=== PATIENT | female | born 1990 | race Two or more races ===

== ENCOUNTER 2019-10-28 11:54 | Inpatient (IN) | payer OTHER ==
[2019-10-28] MEDS ORDERED: ELECTROLYTE-148 SOLN 500 ML IV ONE (12:00)
[2019-10-28] MEDS ORDERED: CITRIC ACID/SODIUM CITRATE 30 ML UNIT-DOSE CUP PO ONE (12:39)
[2019-10-28] MEDS: ELECTROLYTE-148 SOLN 1,000 ML IV SCH (12:45)
[2019-10-28 12:55] VITALS: BMI 36.1
--- NOTE | 2019-10-28 13:14 | HP ---
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: Alzheimer's, CVA, Dementia, Migraine, Multiple Sclerosis, Peripheral Neuropathy, Parkinson's, Seizure, Syncope, TIA, Vertigo, Other Cardiovascular: No: AFIB, Aneurysm, Aortic Insufficiency, Aortic Stenosis, CAD, CHF, Deep Vein Thrombosis, HTN, Hyperlipdemia, [place], Mitral Insufficiency, Mitral Stenosis, Murmur, Pulmonary Hypertension, Other Pulmonary: No: Asthma, Bronchitis, Cancer, COPD, O2 Dependent, Pneumonia, Previously Intubated, Pulmonary Embolus, Pulmonary Fibrosis, Sleep Apnea, Other Gastrointestinal: No: Ascites, Cancer, Constipation, Crohn's Disease, Diverticulitis, Diverticulosis, Esophageal Varices, Gastritis, GERD, GI Bleed, Hemorrhoids, Hiatal Hernia, Inflamatory Bowel Disease, Irritable Bowel Disease, Pancreatitis, Peptic Ulcer Disease, Ulcerative Colitis, Other Hepatobiliary: No: Cirrhosis, Cholelithiasis, Cholecystitis, Choledocholithiasis , Hepatitis A, Hepatitis B, Hepatitis C, Other Renal/: No: Renal Failure, Renal Inusuff, BPH, Cancer, Hematuria, Hemodialysis , Neurogenic Bladder, Renal Calculi, UTI, Other Reproductive: No: Ectopic , Endometriosis, Fibroids, PID, Polycystic Ovary Syndrome, Postmenopausal, Other ...: 3 ...Para: 2 ...Term: 2 ...: 0 ...Spon : 0 ...Induced : 0 ...Multiple Gestation: 0 ...LMP: 01/28/19 ... Weeks Gestation by Dates: 39.0 ...EDC by Dates: 11/04/19 ...EDC by Sono: 11/08/19 Heme/Onc: No: Anemia, B12 Deficiency, Bleeding Disorder, Cancer, Current Chemotherapy, Current Radiation Therapy, Hemochromatosis, Hypercoaguable State, Myeloproliferative Synd, Sickle Cell Disease, Sickle Cell Trait, Thrombocytopenia, Other Infectious Disease: No: AIDS, C-Diff, Herpes Zoster, HIV, MRSA, STD's, Tuberculosis, VREF, Other Psych: No: Addictions, Anxiety, Bipolar, Depression, Panic, Psychosis, Schizophrenia, Other Musculoskeletal: No: Bursitis, Chronic low back pain, Hemiparesis, Hemiplegia, Osteoarthritis, Paraplegia, Other Rheumatology: No: Fibromyalgia, Gout, Lupus, Rheumatoid Arthritis, Sarcoidosis, Vasculitis, Other ENT: No: Allergic Rhinitis, Sinusitis, Other Endocrine: No: [place]'s Disease, Rubi's Disease, Diabetes Insipidus, Diabetes Mellitus, Hyperparathyroidism, Hyperthyroidism, Hypothyroidism, Osteopenia, SIADH, Other Dermatology: No: Basal Cell, Cellulitis, Eczema, Melanoma, Psoriasis, Squamous Cell, Other - Past Surgical History Past Surgical History: Yes: (x 2) Hx Myomectomy: No Hx Transabdominal Cerclage: No - Smoking History Smoking history: Never smoked Have you smoked in the past 12 months: No - Alcohol/Substance Use Hx Alcohol Use: No - Social History History of Recent Travel: Yes (negative Zika testing x 2) Home Medications - Allergies Allergies/Adverse Reactions: Allergies Allergy/AdvReac Type Severity Reaction Status Date / Time No Known Allergies Allergy Verified 10/28/19 12:34 - Home Medications Home Medications: Ambulatory Orders Pnv No.95/Ferrous Fum/Folic AC [ Vitamin Tablet] 1 each PO DAILY Family Medical History Family Hx Diabetes: Mother, Father Other Family History: HTN: mother and father Review of Systems - Review of Systems Constitutional: reports: No Symptoms Eyes: reports: No Symptoms HENT: reports: No Symptoms Neck: reports: No Symptoms Cardiovascular: reports: No Symptoms Respiratory: reports: No Symptoms Gastrointestinal: reports: No Symptoms Genitourinary: reports: No Symptoms Breasts: reports: No Symptoms Reported Musculoskeletal: reports: No Symptoms Integumentary: reports: No Symptoms Neurological: reports: No Symptoms Endocrine: reports: No Symptoms Hematology/Lymphatic: reports: No Symptoms Psychiatric: reports: No Symptoms Physical Exam - Maternity Vital Signs: Vital Signs Temperature 98.3 F 10/28/19 11:54 Pulse Rate 98 H 10/28/19 11:54 Respiratory Rate 18 10/28/19 11:54 Blood Pressure 111/61 10/28/19 11:54 O2 Sat by Pulse Oximetry (%) Constitutional: Yes: Well Nourished HENT: Yes: Atraumatic Neck: Yes: Supple Cardiovascular: Yes: Regular Rate and Rhythm Breast(s): Yes: Other (deferred) - Abdominal Exam/OB Number of Fetuses: Single Presentation: Vertex - Physical Exam Musculoskeletal: Yes: WNL Extremities: Yes: WNL Edema: Yes Edema: LLE: Trace, RLE: Trace Integumentary: Yes: WNL ...Motor Strength: WNL Psychiatric: Yes: Alert, Oriented - Labs Lab Results: Reviewed Imaging - Results Ultrasound: Report Reviewed Problem List - Problems (1) Previous delivery affecting Code(s): O34.219 - MATERNAL CARE FOR UNSP TYPE SCAR FROM PREVIOUS DEL Assessment/Plan 29 y/o @ 39.0 wks, prior CD x 2 presenting for scheduled RCD and desiring BTL and consent previously obtained. Risks and complications of procedure discussed and informed consent obtained. Obstetrical H/O and testing for this WNL. proceed with surgery
[2019-10-28] MEDS ORDERED: ceFAZolin SODIUM 1 GM VIAL ONE (13:30)
[2019-10-28] MEDS ORDERED: OXYTOCIN 10 UNITS/ML VIAL ONE (13:30)
[2019-10-28] MEDS ORDERED: KETOROLAC TROMETHAMINE 30 MG/1 ML VIAL ONE (13:30)
[2019-10-28] MEDS ORDERED: ONDANSETRON 4 MG/2 ML VIAL IVPUSH PRN (14:00)
[2019-10-28] MEDS ORDERED: PHENYLEPHRINE HCL 10 MG/1 ML SINGLE DOSE VIAL ONE (14:40)
[2019-10-28] MEDS ORDERED: OXYTOCIN 20 UNITS in 0.9% NS 20 UNIT/1,000 ML INFUS.BAG IV ONE (14:48)
--- NOTE | 2019-10-28 15:14 | OP ---
Operative Note - Note: Operative Date: 10/28/19 (dict#[id number]) Pre-Operative Diagnosis: Previous CD and multiparity Operation: RLTCS and bilateral salpingectomy Post-Operative Diagnosis: Same as Pre-op Surgeon: Gregg Bliss Concrete Rubber: Mohinder Go Anesthesia: Spinal Specimens Removed: Bilateral fallopian tubes and left ovarian lesion biopsy Estimated Blood Loss (mls): 700 Fluid Volume Replaced (mls): 2,000 Operative Report Dictated: Yes
[2019-10-28] MEDS ORDERED: OXYTOCIN 20 UNITS in 0.9% NS 20 UNIT/1,000 ML INFUS.BAG IV SCH (17:15)
[2019-10-28] MEDS: IBUPROFEN 800 MG/8 ML IJ IVPB PRN (21:32)
[2019-10-29] MEDS: IBUPROFEN 800 MG/8 ML IJ IVPB PRN (06:46)
--- NOTE | 2019-10-29 07:07 | PN ---
Post Progress Note - Subjective Subjective: not yet ambulating, lochia decreased, no n/v, baker just removed Post Day: 1 Type of Delivery: Repeat C/S Vital Signs: Vital Signs Temperature 98.4 F 10/29/19 06:00 Pulse Rate 84 10/29/19 06:00 Respiratory Rate 20 10/29/19 06:00 Blood Pressure 106/62 10/29/19 06:00 O2 Sat by Pulse Oximetry (%) 97 10/28/19 15:45 Breast Exam: Yes: Other (deferred) Uterus: Yes: Fundus Firm Incision: Yes: Dressing dry and intact, [place] intact Abdomen/GI: Yes: Abdomen soft Lochia, amount: Moderate Extremities: Yes: Calves non-tender Perineum: Yes: Intact Activity: Other - Labs Labs: AM pending Problem List - Problems (1) Previous delivery affecting Code(s): O34.219 - MATERNAL CARE FOR UNSP TYPE SCAR FROM PREVIOUS DEL Assessment/Plan POD # 1 s/p RCD and btl, stable condition, JW declining prbc -AM labs -encouraged ambulation -advance diet -inpatient care -anticipate d/c home on ppd#3
[2019-10-29 08:23] LABS: BASO % 0.4 % (0-2.0); EOS % 0.4 % (0-4.5); HEMATOCRIT 33.7 % (32.4-45.2); HEMOGLOBIN 11.6 GM/dL (10.7-15.3); LYMPH % 9.6 % (8-40); MCH 29.2 pg (25.7-33.7); MCHC 34.3 g/dl (32.0-36.0); MEAN CELL VOLUME 85.1 fl (80-96); MEAN PLT VOLUME 7.9 fl (7.5-11.1); NEUT % 82.6 % (42.8-82.8); PLATELET COUNT 204 K/MM3 (134-434); RBC 3.96 M/mm3 (3.60-5.2); WHITE BLOOD COUNT 9.8 K/mm3 (4.0-10.0)
[2019-10-29] MEDS: oxyCODONE HCL 5 MG TABLET PO PRN ×3 (13:02→23:04)
[2019-10-29] MEDS: ACETAMINOPHEN 325 MG TABLET (FP) PO PRN ×2 (13:02→18:32)
[2019-10-29] MEDS: SIMETHICONE 80 MG TAB.CHEW (FP) PO PRN ×2 (13:03→18:32)
--- NOTE | 2019-10-29 13:20 | OP ---
DATE OF OPERATION: 10/28/2019 PREOPERATIVE DIAGNOSIS: A 29-year-old female 3, para 2-0-0-1 at 39 weeks of gestation, prior section x2 desiring repeat section and bilateral sterilization. POSTOPERATIVE DIAGNOSIS: A 29-year-old female 3, para 2-0-0-1 at 39 weeks of gestation, prior section x2 desiring repeat section and bilateral sterilization. PROCEDURE: Repeat low transverse section, bilateral salpingectomy, left ovarian lesion biopsy. ATTENDING: Lamar Fonseca MD LOOP SEWER: SELINA Pizarro ANESTHESIA: Spinal. ESTIMATED BLOOD LOSS: 700 mL. INTRAVENOUS FLUIDS: 2 L of crystalloid. URINE OUTPUT: 600 mL of clear urine. SPECIMENS: Bilateral fallopian tubes and left ovarian lesion biopsy. FINDINGS: Normal anterior abdominal wall anatomy consistent with prior section. The fascia was thick and adherent to the underlying rectus muscles. The rectus muscles were fused to each other in the midline. No visceral parietal peritoneal adhesions. The bladder was slightly adherent to the lower uterine segment. Bilateral fallopian tubes consistent with normal anatomy. Uterus was normal in appearance. Right ovary normal in appearance. The left ovary was normal in size and had a brownish-yellowish flat lesion approximately 2 x 3 cm on its posterior aspect. DESCRIPTION OF PROCEDURE: The patient was taken to the operating room where anesthesia was found to be adequate. She was then prepped and draped in the normal sterile fashion. Urinary Holm catheter was placed atraumatically. Appropriate time-out took place. Pfannenstiel skin incision was made with a scalpel and carried to underlying fascia with the Bovie. The fascia was incised in the midline and incision extended laterally with sharp dissection. The underlying rectus muscles were dissected off sharply. The rectus muscles were elevated with Allis clamps in the midline, and the peritoneal was entered sharply superiorly. The incision was extended laterally with blunt and sharp dissection. Findings as mentioned previously. Bladder blade was placed, and the transverse lower uterine segment incision with the scalpel was made and extended laterally with blunt dissection. Amniotomy revealed clear amniotic fluid. Infant in cephalic presentation. Loose nuchal cord x2. The was delivered through the surgical incision with mild fundal pressure without difficulty. Nuchal cord reduced, and the cord was clamped and cut after delay. The infant was handed off to the NICU staff. Sample for gases were obtained from the cord. The placenta was delivered manually and intact. The uterus was exteriorized through the surgical incision, and the inferior uterine cavity was cleared of all clots and debris. The uterine incision was approximated with 1-0 Polysorb running, locked suture. Excellent structural reapproximation and hemostasis achieved with 1-layer suture. Attention was then re-directed to the right fallopian tube, which was elevated with Martha clamps and excised utilizing the LigaSure instrument. This was done without difficulty. Excellent hemostasis from the surgical stump. Attention then was re-directed to the contralateral fallopian tube, which underwent the exact same procedure just described without difficulty. Excellent hemostasis noted. Left ovarian lesion biopsy taken and oozing controlled with Bovie cautery. The uterus was internalized to the pelvic cavity. Gutter were cleared of all clots and debris. Bladder dome and rectus muscle fascial interface was noted to be dry. Fascial incision was reapproximated with 0 Polysorb running, nonlocked suture. Excellent structural reapproximation achieved and confirmed by digital palpation by the surgeon. Subcutaneous tissues were copiously irrigated and bleeders neutralized with Bovie cautery. Skin incision was approximated with surgical liat. Instrument count was reported as correct x2 by the staff. Patient in stable condition. LAMAR FONSECA MD [id number] MTDD
[2019-10-29] MEDS: ELECTROLYTE-148 SOLN 1,000 ML IV SCH (16:34)
[2019-10-29] MEDS ORDERED: BISACODYL 10 MG SUPP.RECT RC PRN (17:09)
[2019-10-30] MEDS: oxyCODONE HCL 5 MG TABLET PO PRN ×3 (03:54→11:47)
[2019-10-30] MEDS: IBUPROFEN 600 MG TABLET (FP) PO PRN ×3 (03:54→18:22)
[2019-10-30] MEDS: SIMETHICONE 80 MG TAB.CHEW (FP) PO PRN ×3 (07:43→18:22)
--- NOTE | 2019-10-30 08:41 | PN ---
Post Progress Note - Subjective Subjective: c/o pain scale 10/10 voiding without difficulty bm not done Post Day: 2 Type of Delivery: Repeat C/S Vital Signs: Vital Signs Temperature 98.0 F 10/29/19 21:14 Pulse Rate 81 10/29/19 21:14 Respiratory Rate 20 10/29/19 21:14 Blood Pressure 112/62 10/29/19 21:14 O2 Sat by Pulse Oximetry (%) 97 10/28/19 15:45 Breast Exam: Yes: Soft, Other (BF & bottle feeding ). No: Engorged Uterus: Yes: Fundus Firm, Fundus below umbilicus Incision: Yes: [place] intact. No: Redness, Oozing Abdomen/GI: Yes: Abdomen soft, Passing flatus, Tolerating PO (diet). No: Abdominal Distention, Tender Lochia: Yes: Rubra Lochia, amount: Moderate Extremities: Yes: Calves non-tender Perineum: Yes: Intact Activity: Ambulating - Labs Labs: CBC WBC 9.8 K/mm3 (4.0-10.0) 10/29/19 07:42 RBC 3.96 M/mm3 (3.60-5.2) 10/29/19 07:42 Hgb 11.6 GM/dL (10.7-15.3) 10/29/19 07:42 Hct 33.7 % (32.4-45.2) 10/29/19 07:42 MCV 85.1 fl (80-96) 10/29/19 07:42 MCH 29.2 pg (25.7-33.7) 10/29/19 07:42 MCHC 34.3 g/dl (32.0-36.0) 10/29/19 07:42 RDW 14.0 % (11.6-15.6) 10/29/19 07:42 Plt Count 204 K/MM3 (134-434) 10/29/19 07:42 MPV 7.9 fl (7.5-11.1) 10/29/19 07:42 Absolute Neuts (auto) 8.1 K/mm3 (1.5-8.0) H 10/29/19 07:42 Neutrophils % 82.6 % (42.8-82.8) 10/29/19 07:42 Lymphocytes % 9.6 % (8-40) D 10/29/19 07:42 Monocytes % 7.0 % (3.8-10.2) 10/29/19 07:42 Eosinophils % 0.4 % (0-4.5) 10/29/19 07:42 Basophils % 0.4 % (0-2.0) 10/29/19 07:42 Nucleated RBC % 0 % (0-0) 10/29/19 07:42 Problem List - Problems (1) Status post section routine follow-up Code(s): Z39.2 - ENCOUNTER FOR ROUTINE FOLLOW-UP; Z98.891 - HISTORY OF UTERINE SCAR FROM PREVIOUS SURGERY Assessment/Plan stable pt requesting something for BM plan ct po care
[2019-10-30] MEDS: ACETAMINOPHEN 325 MG TABLET (FP) PO PRN (18:21)
[2019-10-31] MEDS: ACETAMINOPHEN 325 MG TABLET (FP) PO PRN (02:13)
[2019-10-31] MEDS: IBUPROFEN 600 MG TABLET (FP) PO PRN (02:13)
--- NOTE | 2019-10-31 06:33 | PN ---
Post Progress Note - Subjective Subjective: Pain improved with po meds. No fevers/chills. Ambulating w/o difficulty. Lochia < menses Post Day: 3 Type of Delivery: Repeat C/S Vital Signs: Vital Signs Temperature 98.0 F 10/30/19 21:48 Pulse Rate 81 10/30/19 21:48 Respiratory Rate 20 10/30/19 21:48 Blood Pressure 104/55 L 10/30/19 21:48 O2 Sat by Pulse Oximetry (%) 97 10/28/19 15:45 Uterus: Yes: Fundus below umbilicus Incision: Yes: Dressing dry and intact Abdomen/GI: Yes: Tolerating PO Lochia: Yes: Rubra Lochia, amount: Small Extremities: Yes: Calves non-tender Perineum: Yes: Intact Activity: Ambulating - Labs Labs: CBC WBC 9.8 K/mm3 (4.0-10.0) 10/29/19 07:42 RBC 3.96 M/mm3 (3.60-5.2) 10/29/19 07:42 Hgb 11.6 GM/dL (10.7-15.3) 10/29/19 07:42 Hct 33.7 % (32.4-45.2) 10/29/19 07:42 MCV 85.1 fl (80-96) 10/29/19 07:42 MCH 29.2 pg (25.7-33.7) 10/29/19 07:42 MCHC 34.3 g/dl (32.0-36.0) 10/29/19 07:42 RDW 14.0 % (11.6-15.6) 10/29/19 07:42 Plt Count 204 K/MM3 (134-434) 10/29/19 07:42 MPV 7.9 fl (7.5-11.1) 10/29/19 07:42 Absolute Neuts (auto) 8.1 K/mm3 (1.5-8.0) H 10/29/19 07:42 Neutrophils % 82.6 % (42.8-82.8) 10/29/19 07:42 Lymphocytes % 9.6 % (8-40) D 10/29/19 07:42 Monocytes % 7.0 % (3.8-10.2) 10/29/19 07:42 Eosinophils % 0.4 % (0-4.5) 10/29/19 07:42 Basophils % 0.4 % (0-2.0) 10/29/19 07:42 Nucleated RBC % 0 % (0-0) 10/29/19 07:42 Assessment/Plan 29yo s/p RLTCS, POD#3 Routine PP care PO pain control Labs reviewed Cont HTN meds, has office f/u next week for BP and incision check D/C to home today per pt request Gali Ray MD
[2019-10-31] MEDS: oxyCODONE HCL 5 MG TABLET PO PRN (08:09)
--- NOTE | 2019-10-31 08:43 | DS ---
Physical Examination Vital Signs: Vital Signs Temperature 98.0 F 10/30/19 21:48 Pulse Rate 81 10/30/19 21:48 Respiratory Rate 20 10/30/19 21:48 Blood Pressure 104/55 L 10/30/19 21:48 O2 Sat by Pulse Oximetry (%) 97 10/28/19 15:45 Constitutional: Yes: Well Nourished, No Distress, Calm Eyes: Yes: WNL, Conjunctiva Clear, EOM Intact HENT: Yes: WNL, Atraumatic, Normocephalic Neck: Yes: WNL, Supple, Trachea Midline Cardiovascular: Yes: WNL, Regular Rate and Rhythm Respiratory: Yes: WNL, Regular, CTA Bilaterally Gastrointestinal: Yes: WNL, Normal Bowel Sounds Musculoskeletal: Yes: WNL Extremities: Yes: WNL Edema: No Integumentary: Yes: WNL Neurological: Yes: WNL, Alert, Oriented ...Motor Strength: WNL Psychiatric: Yes: WNL Labs: CBC, BMP 10/29/19 07:42 Discharge Summary Problems reviewed: Yes Reason For Visit: SCHEDULED C-SETION Current Active Problems Previous delivery affecting (Acute) Status post section routine follow-up (Acute) Procedures: Principal: Repeat Hospital Course: Patient was sent from the office for Repeat C/S secondary to elevated blood pressures She had a repeat without complications She was controlled on Labetalol BID She met all milestones She was discharged home on POD#3 Gali Ray MD Condition: Stable - Instructions Diet, Activity, Other Instructions: Return to regular diet as tolerated. regular activity as cleared by provider. Call MD with any questions or concerns, follow up in 1 week from discharge. Referrals: Gregg Bliss MD [Staff Physician] - Disposition: HOME - Home Medications Comprehensive Discharge Medication List: Ambulatory Orders Pnv No.95/Ferrous Fum/Folic AC [ Vitamin Tablet] 1 each PO DAILY Acetaminophen [Tylenol] 650 mg PO Q6H PRN #30 capsule MDD 6 10/29/19 Ferrous Sulfate [Feosol] 325 mg PO DAILY #30 tablet 10/29/19 Ibuprofen 600 mg PO Q6H PRN #30 tablet 10/29/19 Oxycodone HCl 5 mg PO Q6H PRN 3 Days #12 tablet MDD 5 10/29/19
[2019-10-31 09:09] VITALS: BP 108/61; PULSE 76; TEMP 98.6
[2019-10-31 09:14] LABS: BASO % 0.3 % (0-2.0); EOS % 1.9 % (0-4.5); HEMATOCRIT 33.3 % (32.4-45.2); HEMOGLOBIN 11.3 GM/dL (10.7-15.3); LYMPH % 18.7 % (8-40); MCH 28.8 pg (25.7-33.7); MCHC 33.8 g/dl (32.0-36.0); MEAN CELL VOLUME 85.2 fl (80-96); MEAN PLT VOLUME 7.8 fl (7.5-11.1); MONO % 5.9 % (3.8-10.2); NEUT % 73.2 % (42.8-82.8); PLATELET COUNT 254 K/MM3 (134-434); RBC 3.91 M/mm3 (3.60-5.2); WHITE BLOOD COUNT 6.7 K/mm3 (4.0-10.0)
--- NOTE | 2019-11-01 17:18 | PATH ---
Surgical Pathology Report Patient Name: ROXANA MODI Med. Rec. 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 PLACENTA: THIRD TRIMESTER PLACENTA WITH FOCAL CHRONIC DECIDUITIS. TRIVASCULAR CORD. MEMBRANES WITH NO DIAGNOSTIC ABNORMALITIES. B. PORTION OF RIGHT FALLOPIAN TUBE, SALPINGECTOMY: PORTION OF FALLOPIAN TUBE WITH NO SIGNIFICANT PATHOLOGIC CHANGE. COMPLETE CROSS SECTION OF THE FALLOPIAN TUBE LUMEN IDENTIFIED. C. PORTION OF LEFT FALLOPIAN TUBE, SALPINGECTOMY: PORTION OF FALLOPIAN TUBE WITH NO SIGNIFICANT PATHOLOGIC CHANGE. COMPLETE CROSS SECTION OF THE FALLOPIAN TUBE LUMEN IDENTIFIED. D. LEFT OVARIAN LESION, BIOPSY: PORTION OF STROMAL TISSUE WITH OLD HEMORRHAGE AND FOCAL DECIDUAL-LIKE CHANGE. SEE COMMENT. Comment: Immunohistochemical stains (block D) show the lesion is negative for cytokeratin stains AE1/3, while focally highlighted by CD10 in the stroma. Findings are suggestive of endometriosis. Clinical correlation is recommended. AE1/3 is performed and interpreted at [facility]. CD10 is performed at [place], [place] ([id number]) and interpreted at [facility]. Electronically Signed Rani Padilla M.D. Gross Description A. The specimen is received fresh labeled placenta and is a 526 gram, 20.0 x 19.5 x 2.0 cm. placenta with attached membranes and umbilical cord. The attached membranes are alcocer, translucent with focal opacities and insert marginally. The umbilical cord measures 36 cm. in length and averages 1.2 cm. in diameter. The cord inserts eccentrically, 6 cm. to the nearest margin. No true knots or strictures are identified. Cut surface of the umbilical cord reveals 3 vessels. The surface is zhao-blue with minimal fibrin deposition and appropriate caliber vessels. The maternal surface is red-brown with focal defects. Sectioning reveals red-brown, spongy parenchyma. No lesions are identified. Manager Of Care sections are submitted in three cassettes as follows: 1- membrane rolls and umbilical cord; 2-3- full thickness sections of placenta. B. Received in formalin labeled "right fallopian tube," is a 7 cm in length fimbriated fallopian tube. The outer surface is zhao purple and smooth. Sectioning reveals an unremarkable lumen. Manager Of Care sections are submitted in 2 cassettes as follows: 1-fimbria; 2-cross sections of fallopian tube. C. Received in formalin labeled "left fallopian tube," is a 7 cm in length fimbriated portion of fallopian tube. The outer surface is zhao purple and smooth. Sectioning reveals an unremarkable lumen. Manager Of Care sections are submitted in 2 cassettes as follows: 1-fimbria; 2-sections of fallopian tube. D. Received in formalin labeled "biopsy from left ovarian lesion," is a 0.6 x 0.5 x 0.1 cm red-brown, hemorrhagic portion of tissue. The specimen is submitted in toto in one cassette. 10/30/2019 [facility]10/30/2019
== END 2019-10-31 13:00 | disposition home or self-care (01) | DRG 540 ==
LOC: JLDR 11:54 → J3W 16:40
PROVIDERS: ADMIT Student in an Organized Health Care Education/Training Program; ATTEND Student in an Organized Health Care Education/Training Program
PROC: 10D00Z1 Extraction of Products of Conception, Low, Open Approach (ICD-10-PCS; principal; 2019-10-28)
PROC: 0UB70ZZ Excision of Bilateral Fallopian Tubes, Open Approach (ICD-10-PCS; 2019-10-28)
PROC: 0UB10ZX Excision of Left Ovary, Open Approach, Diagnostic (ICD-10-PCS; 2019-10-28)
DX: O34.211 Maternal care for low transverse scar from previous cesarean delivery (principal); N85.8 Other specified noninflammatory disorders of uterus; O13.4 Gestational [pregnancy-induced] hypertension without significant proteinuria, complicating childbirth; Z3A.39 39 weeks gestation of pregnancy; Z30.2 Encounter for sterilization; Z37.0 Single live birth
CPT/HCPCS: 36415; 85025; 88302-TC; 88305-TC; 88307-TC